=== PATIENT | male | born 1955 ===

== ENCOUNTER 2021-06-23 18:31 | Emergency (ER) | payer OTHER ==
--- NOTE | 2021-06-23 18:43 | Emergency Department Report ---
- General Chief complaint: Neuro Symptoms/Deficit Stated complaint: POSSIBLE STROKE PUI?: No Time Seen by Provider: 06/23/21 18:41 Source: patient, family Mode of arrival: Wheelchair Limitations: No Limitations - History of Present Illness Initial comments: Patient is a 66-year-old male that presents emergency room with complaints of syncopal episode and generalized weakness. Patient states of his daughter 45 minutes ago. Patient was brought to the hospital by his . states he was completely unconscious. Patient is answering questions appropriately at this time. Patient denies chest pain. Patient denies shortness of breath. Last known well time 45 minutes ago. Patient denies recent travel. Patient denies recent international travel. Patient denies exposure to the novel coronavirus. Patient denies sick contacts. Patient denies fever and chills. Patient denies cough. Patient denies diarrhea. Patient denies coming in contact with anybody with symptoms of the novel coronavirus. MD Complaint: generalized weakness -: Sudden Location: generalized Severity: severe Consistency: constant Improves with: rest Worsens with: movement Associated Symptoms: denies other symptoms. denies: chest pain, confusion, dark stools, diaphoresis, dysuria, easy bruising, fever/chills, headaches, loss of appetite, nausea/vomiting, myalgias, rash, shortness of breath, syncope - Related Data Previous Rx's Medication Instructions Recorded Last Taken Type Potassium Chloride [K-Dur] 10 meq PO QDAY 30 Days #30 tab 06/23/21 Unknown Rx Allergies Allergy/AdvReac Type Severity Reaction Status Date / Time No Known Allergies Allergy Verified 06/23/21 18:42 ED Review of Systems ROS: Stated complaint: POSSIBLE STROKE Other details as noted in HPI Constitutional: weakness. denies: chills, fever Eyes: denies: eye pain, eye discharge, vision change ENT: denies: ear pain, throat pain Respiratory: denies: cough, shortness of breath, wheezing Cardiovascular: denies: chest pain, palpitations Endocrine: no symptoms reported Gastrointestinal: denies: abdominal pain, nausea, diarrhea Genitourinary: denies: urgency, dysuria Musculoskeletal: denies: back pain, joint swelling, arthralgia Skin: denies: rash, lesions Neurological: as per HPI, weakness. denies: headache, paresthesias Psychiatric: denies: anxiety, depression Hematological/Lymphatic: denies: easy bleeding, easy bruising ED Past Medical Hx - Past Medical History Previous Medical History?: Yes Hx Hypertension: Yes Additional medical history: hernia - Surgical History Past Surgical History?: No - Family History Family history: no significant - Social History Smoking Status: Never Smoker Substance Use Type: None - Medications Home Medications: Home Medications Medication Instructions Recorded Confirmed Last Taken Type Potassium Chloride [K-Dur] 10 meq PO QDAY 30 Days #30 tab 06/23/21 Unknown Rx ED Physical Exam - General Limitations: No Limitations General appearance: alert, in no apparent distress - Head Head exam: Present: atraumatic, normocephalic - Eye Eye exam: Present: normal appearance, PERRL Pupils: Present: normal accommodation - ENT ENT exam: Present: mucous membranes dry - Neck Neck exam: Present: normal inspection - Respiratory Respiratory exam: Present: normal lung sounds bilaterally. Absent: respiratory distress, wheezes, rales - Cardiovascular Cardiovascular Exam: Present: regular rate, normal rhythm. Absent: systolic murmur, diastolic murmur, rubs, gallop - GI/Abdominal GI/Abdominal exam: Present: soft, normal bowel sounds - Rectal Rectal exam: Present: deferred - Extremities Exam Extremities exam: Present: normal inspection - Back Exam Back exam: Present: normal inspection - Neurological Exam Neurological exam: Present: alert, oriented X3 - Psychiatric Psychiatric exam: Present: normal affect, normal mood - Skin Skin exam: Present: warm, dry, intact, normal color. Absent: rash - Assessment Assessment Interval: Baseline - Level of Consciousness 1a. Level of Consciousness: alert/keenly responsive - LOC Questions 1b. LOC Questions: answers both correctly - LOC Command 1c. LOC Commands: performs tasks correctly - Best Gaze 2. Best Gaze: normal - Visual 3. Visual: no visual loss - Facial Palsy 4. Facial Palsy: normal symmetrical movement - Motor Arm 5a. Motor Arm Left: no drift 5b. Motor Arm Right: no drift - Motor Leg 6a. Motor Leg Left: no drift 6b. Motor Leg Right: no drift - Limb Ataxia 7. Limb Ataxia: absent - Sensory 8. Sensory: normal - Best Language 9. Best Language: no aphasia - Dysarthria 10. Dysarthria: normal - Extinction and Inattention 11. Extinction/Inattention: no abnormality - Scoring Total Score: 0 Stroke Severity: No Stroke Symptoms ED Course Vital Signs 06/23/21 06/23/21 18:41 21:19 Temperature 98.1 F 98 F Pulse Rate 95 H 68 Respiratory 17 16 Rate Blood Pressure 132/68 117/71 [Left] O2 Sat by Pulse 100 Oximetry - Reevaluation(s) Reevaluation #1: Patient had a code stroke initiated in triage and was taken directly to CT scan. Initial evaluation done once the patient returned from CT. 06/23/21 18:41 Reevaluation #2: Patient awake alert and oriented x4. Patient states he had a near syncopal episode or possibly a short syncopal episode. 06/23/21 19:16 Reevaluation #3: 06/23/21 21:17 Reevaluation #4: Patient states he is feeling much better. Patient has received IV fluids and potassium. Patient is also received oral potassium. Patient will have a repeat BMP 06/23/21 23:18 Reevaluation #5: I discussed all results and clinical findings with patient. I discussed plan of care with patient. Patient agrees with plan of care. Patient is stable for discharge. Patient will be discharged home. Patient given discharge instructions. Patient voiced understanding of discharge instructions. 06/23/21 23:49 - Consultations Consultation #1: I discussed the case with neurology. Neurology not recommend any further diagnostics. Neurology also does not recommend admission. 06/23/21 19:18 ED Medical Decision Making - Lab Data Result diagrams: 06/23/21 18:53 06/23/21 22:43 - EKG Data -: EKG Interpreted by Me EKG shows normal: sinus rhythm, axis, intervals, QRS complexes, ST-T waves Rate: bradycardia - Radiology Data Radiology results: report reviewed CT head/brain wo con INDICATION / CLINICAL INFORMATION: 66 years Male; Stroke symptoms. TECHNIQUE: Routine CT head without contrast. All CT scans at this location are performed using CT dose reduction for ALARA by means of automated exposure control. COMPARISON: None. FINDINGS: BRAIN / INTRACRANIAL CONTENTS: There is mild cerebral white matter disease most consistent with microvascular angiopathy. There also appear to be mild cerebral atrophy. The ventricular system is within normal limits in size and configuration. The motion degrades image quality. However, there is no clear CT evidence of acute intracranial hemorrhage or significant mass effect. ORBITS: No significant abnormality of visualized orbits. SINUSES / MASTOIDS: No significant abnormality in the visualized paranasal sinuses or mastoid air cells. CRANIOCERVICAL JUNCTION: No significant abnormality. ADDITIONAL FINDINGS: None. IMPRESSION: 1. There is mild microvascular angiopathy as described without CT evidence of acute intracranial hemorrhage. - Medical Decision Making Patient is a 66-year-old male who presents emergency room with complaints of near syncope and syncopal episode. Patient states he is feeling weak. Patient complains of generalized weakness. Patient's last known well time was 45 minutes prior to initial evaluation. Patient had a code stroke initiated by the nurses protocol in triage. Patient was taken immediately from triage to CT scan for CT scan of the head. Patient was also seen by neurology. Patient was back to baseline upon initial evaluation. Patient has a normal neurologic assessment. Neurology saw the patient and does not recommend further diagnostics, imaging or admission. Neurology also does not recommend TPA. Neurology thinks is a simple syncopal episode. Patient had labs done which were significant for hypokalemia. Patient given IV fluids and IV potassium. Patient also given oral potassium. Patient remained stable the entire time in the ER. Patient had a repeat potassium which showed potassium to improve. Davina ent is stable for discharge. Patient discharged home with a potassium supplement. Patient does not require inpatient service. Patient not require further emergency medical service. Patient stable for discharge. I discussed all results and clinical findings with patient. I discussed plan of care with patient. Patient agrees with plan of care. Patient is stable for discharge. Patient will be discharged home. Patient given discharge instructions. Patient voiced understanding of discharge instructions. - Differential Diagnosis Syncope, weakness, dehydration, electrolyte imbalance Critical care attestation.: If time is entered above; I have spent that time in minutes in the direct care of this critically ill patient, excluding procedure time. ED Disposition Clinical Impression: Weakness, Hypokalemia, Dehydration Syncopal episodes Qualifiers: Syncope type: unspecified Qualified Code(s): R55 - Syncope and collapse Disposition: 01 HOME / SELF CARE / HOMELESS Is pt being admited?: No Does the pt Need Aspirin: No Condition: Stable Instructions: Hypokalemia, Dehydration, Adult, [id number], Syncope (ED) Additional Instructions: Patient to follow-up with primary care in 2 to 3 days. Patient to follow-up with neurology and cardiology in 2 to 3 days. Patient to have potassium checked in 2 to 3 days. Patient to rest. Patient to increase water. Patient to avoid strenuous exercise or heavy lifting until cleared by primary care, cardiology and neurology.. Patient to take Tylenol or ibuprofen as needed for pain. Patient to take meds as directed. Patient to return to the ER if condition worsens, changes or new symptoms arise. Prescriptions: Potassium Chloride [K-Dur] 10 meq PO QDAY 30 Days #30 tab Referrals: SOFI ALEMAN MD [Primary Care Provider] - 2-3 Days Time of Disposition: 23:50
[2021-06-23 19:01] LABS: Basophils % (Auto) 0.9 % (0.0-1.8); Eosinophils % (Auto) 0.5 % (0.0-4.3); Hematocrit 41.3 % (35.5-45.6); Hemoglobin 14.6 gm/dl (11.8-15.2); Lymphocytes # (Auto) 1.6 K/mm3 (1.2-5.4); Lymphocytes % (Auto) 29.5 % (13.4-35.0); Mean Corpuscular HGB Conc 35 % (32-34); Mean Corpuscular Volume 91 fl (84-94); Monocytes # (Auto) 0.8 K/mm3 (0.0-0.8); Monocytes % (Auto) 14.5 % (0.0-7.3); Red Blood Count 4.52 M/mm3 (3.65-5.03); Red Cell Distribution Width 13.3 % (13.2-15.2)
[2021-06-23 19:06] LABS: Platelet Count 240 K/mm3 (140-440)
[2021-06-23 19:13] LABS: INR 0.89 (0.87-1.13)
--- NOTE | 2021-06-23 19:13 | Cat Scan Report ---
CT head/brain wo con INDICATION / CLINICAL INFORMATION: 66 years Male; Stroke symptoms. TECHNIQUE: Routine CT head without contrast. All CT scans at this location are performed using CT dos e reduction for ALARA by means of automated exposure control. COMPARISON: None. FINDINGS: BRAIN / INTRACRANIAL CONTENTS: There is mild cerebral white matter disease most consistent with micro vascular angiopathy. There also appear to be mild cerebral atrophy. The ventricular system is within normal limits in size and configuration. The motion degrades image quality. However, there is no mickie r CT evidence of acute intracranial hemorrhage or significant mass effect. ORBITS: No significant abnormality of visualized orbits. SINUSES / MASTOIDS: No significant abnormality in the visualized paranasal sinuses or mastoid air ashleigh ls. CRANIOCERVICAL JUNCTION: No significant abnormality. ADDITIONAL FINDINGS: None. IMPRESSION: 1. There is mild microvascular angiopathy as described without CT evidence of acute intracranial hemo rrhage. Signer Name: Rajiv Flynn MD Signed: 06/23/2021 7:09 PM Workstation Name: [id number]
[2021-06-23 19:14] LABS: Partial Thromboplastin Time 22.8 Sec. (24.2-36.6)
[2021-06-23 19:21] LABS: Creatine Kinase MB 4.3 ng/mL (0.0-4.0)
[2021-06-23 19:23] LABS: Alanine Aminotransferase 18 units/L (7-56); Albumin 4.4 g/dL (3.9-5); BUN/Creatinine Ratio 14; Blood Urea Nitrogen 13 mg/dL (9-20); Calcium 9.8 mg/dL (8.4-10.2); Hemolysis Index 11
--- NOTE | 2021-06-23 19:39 | Consultation ---
History of Present Illness History of present illness: [facility] Consult Note # Demographics Consult Type: Acute Stroke Level 1 (0-4.5 hrs) Patient Location: Emergency Room First Name: Khanh Last Name: Héctor Date of : 1955 Age: 66 Gender: Male Facility: [facility] Time of Initial Page (): 06/23/2021, 18:42 Time of Return Call (): 06/23/2021, 18:42 # HPI Chief Complaint: weakness (generalized) History: 66M presents with syncopal episode followed by weakness. He remembers feeling like he was going to pass out, but not passing out. Has tingling in both arms/legs. All symptoms started at approximately 1810. # Scores Time of exam and NIHSS (): 06/23/2021, 18:57 Level of Consciousness 1a: [0] = Alert; keenly responsive LOC Questions 1b: [0] = Answers both questions correctly LOC Commands 1c: [0] = Performs both tasks correctly Best Gaze 2: [0] = Normal Visual 3: [0] = No visual loss Facial Palsy 4: [0] = Normal symmetrical movements Motor Arm Left 5a: [0] = No drift Motor Arm Right 5b: [0] = No drift Motor Leg Left 6a: [0] = No drift Motor Leg Right 6b: [0] = No drift Limb Ataxia 7: [0] = Absent Sensory 8: [0] = Normal Best Language 9: [0] = No aphasia Dysarthria 10: [0] = Normal Extinction and Inattention 11: [0] = No abnormality NIHSS Total: 0 # Data Time Head CT personally read by me (): 06/23/2021, 19:[address]: no bleed preliminarily reviewed by me, please refer to radiology read for official reading # Assessment Impression: Syncope # Plan Thrombolytic/Intervention: NOT IV Thrombolysis or IA Intervention candidate Thrombolytic/Intraarterial Exclusion: IV thrombolytic and IA intervention considered but not recommended as this patient's symptoms are not clinically consistent with an assumed diagnosis of stroke Other: I have discussed my recommendations with the referring provider Additional Recommendations: With normal neurologic exam and unremarkable CTH, does not need additional neurologic work-up for syncopal event. Disposition: observation # Logistics Telemedicine: Interactive 2 way audio and visual telecommunication technology was utilized during this visit Medications and Allergies Allergies Allergy/AdvReac Type Severity Reaction Status Date / Time No Known Allergies Allergy Verified 06/23/21 18:42 Physical Examination - Vital Signs Vital Signs: Vital Signs Temp Pulse Resp BP Pulse Ox 98.1 F 95 H 17 132/68 100 06/23/21 18:41 06/23/21 18:41 06/23/21 18:41 06/23/21 18:41 06/23/21 18:41 Results - Laboratory Findings CBC and BMP: 06/23/21 18:53 06/23/21 18:53 Abnormal Lab Findings: Abnormal Labs 06/23/21 06/23/21 06/23/21 18:53 18:53 18:53 MCHC 35 H Ada % (Auto) 14.5 H APTT 22.8 L Glucose 148 H CK-MB (CK-2) 4.3 H
[2021-06-23] MEDS ORDERED: ONDANSETRON 4 MG/2 ML INJ IV ONE (19:47)
[2021-06-23] MEDS ORDERED: POTASSIUM CHLORIDE ER 20 MEQ TAB PO ONE (19:47)
[2021-06-23] MEDS ORDERED: SODIUM CHLORIDE 0.9% 1000 ML 1,000 ML IV ONE (19:47)
[2021-06-23] MEDS ORDERED: POTASSIUM CHLORIDE 20 MEQ 20 MEQ/100 ML BAG IV ONE (19:47)
[2021-06-23] MEDS ORDERED: POTASSIUM CHLORIDE 10 MEQ 10 MEQ/100 ML BAG IV ONE (20:40)
[2021-06-23] MEDS ORDERED: SODIUM CHLORIDE 0.9% 500 ML 500 ML ONE (21:51)
[2021-06-23 23:26] LABS: BUN/Creatinine Ratio 15; Blood Urea Nitrogen 12 mg/dL (9-20); Calcium 8.8 mg/dL (8.4-10.2); Hemolysis Index 84
[2021-06-23 23:48] LABS: Bilirubin,Urine NEG (Negative); Blood,Urine NEG (Negative); Color,Urine Yellow (Yellow); Mucus,Urine FEW /HPF; Protein,Urine <15 mg/dL mg/dL (Negative); Urobilinogen,Urine < 2.0 mg/dL (<2.0); WBC,Urine < 1.0 /HPF (0.0-6.0)
[2021-06-23 23:56] LABS: Amphetamine Screen,Urine PRESUMPTIVE NEGATIVE; Benzodiazepines Screen,Urine PRESUMPTIVE NEGATIVE; Cannabinoid Screen,Urine PRESUMPTIVE NEGATIVE; Cocaine Screen,Urine PRESUMPTIVE NEGATIVE; Methadone Screen,Urine PRESUMPTIVE NEGATIVE; Opiate Screen,Urine PRESUMPTIVE NEGATIVE
[2021-06-24 00:40] VITALS: BP 143/89
--- NOTE | 2021-06-25 10:43 | Electrocardiograph Report ---
[facility] Test Date: 2021-06-23 Test Time: 21:26:44 Pat Name: CHERYLE SALAZAR Department: Room: Gender: M Superintendent Quarry: ANUJA : 1955 Requested By: ELIDIA ARNOLD III Order Number: [id number] Reading MD: Duke Hawkins Measurements Intervals [place] Rate: 59 P: 23 ND: 159 QRS: 46 QRSD: 85 T: 21 QT: 447 QTc: 444 Interpretive Statements Sinus bradycardia No previous ECG available for comparison Electronically Signed On 06-25-2021 10:43:35 EDT by Duke Hawkins
== END 2021-06-24 00:40 | disposition home or self-care (01) ==
LOC: ED 18:31
DX: E86.0 Dehydration (principal); E87.6 Hypokalemia; R55 Syncope and collapse; I10 Essential (primary) hypertension; Z79.899 Other long term (current) drug therapy
CPT/HCPCS: 36415; 70450; 80048; 80053; 80307; 81001; 82550; 82553; 82962; 84484; 85025; 85610; 85670; 85730; 93005; 96365; 96375; 99284; J2405; J3480; J7030; J7040; 80320; Q0162; G0480